=== PATIENT | male | born 1975 | race African-American/Black ===

== ENCOUNTER 2018-09-20 04:14 | Emergency (ER) | payer MEDICAID ==
[~2018-09-20] VITALS: Ht 167.6 cm; Wt 83.5 kg
[2018-09-20] MEDS ORDERED: KETOROLAC 60MG/2ML VIAL IM ONE (07:30)
[2018-09-20 07:59] VITALS: BP 136/83
== END 2018-09-20 09:05 | disposition home or self-care (01) ==
LOC: ER 04:14
DX: M75.31 Calcific tendinitis of right shoulder (principal)
CPT/HCPCS: 73030; 96372; 99283; J1885

== ENCOUNTER 2024-04-12 07:45 | Emergency (ER) | payer MEDICAID, OTHER ==
[~2024-04-12] VITALS: Ht 167.6 cm; Wt 89.0 kg
[2024-04-12 07:47] VITALS: BP 143/90; PULSE 89; RESP 16; TEMP 98.5; O2SAT 100; O2SAT 98
== END 2024-04-12 10:05 | disposition left against medical advice (07) ==
LOC: ER 07:45
DX: Z11.3 Encounter for screening for infections with a predominantly sexual mode of transmission (principal); Z53.21 Procedure and treatment not carried out due to patient leaving prior to being seen by health care provider